=== PATIENT | male | born 1965 | race Caucasian/White ===

== ENCOUNTER 2023-02-21 06:10 | Outpatient (CLI) | payer OTHER ==
[2023-02-21 06:31] LABS: BASOPHILS % (AUTO) 0.9 % (0-1); EOSINOPHILS # (AUTO) 0.1 X10'3 (0-0.9); EOSINOPHILS % (AUTO) 2.3 % (0-6); HEMATOCRIT 47.2 % (42.0-52.0); HEMOGLOBIN 16.5 g/dl (14.0-17.9); LYMPHOCYTES # (AUTO) 1.5 X10'3 (1.1-4.8); LYMPHOCYTES % (AUTO) 36.9 % (21-51); MEAN CORPUSCULAR HEMOGLOBIN 34.4 PG (27.0-31.0); MEAN CORPUSCULAR VOLUME 98.3 FL (78-98); MEAN PLATELET VOLUME 7.5 FL (7.4-10.4); MONOCYTES # (AUTO) 0.4 X10'3 (0-0.9); MONOCYTES % (AUTO) 9.9 % (2-12); NEUTROPHILS # (AUTO) 2.1 X10'3 (1.8-7.7); PLATELET COUNT 212 X10'3 (140-440); RED CELL DISTRIBUTION WIDTH 13.2 % (11.5-14.5); WHITE BLOOD COUNT 4.2 X10'3 (4.5-11.0)
[2023-02-21 06:59] LABS: ALANINE AMINOTRANSFERASE 43 U/L (12-78); ALBUMIN 4.1 G/DL (3.4-5.0); ALBUMIN/GLOBULIN RATIO 1.2 (1.1-1.5); ALKALINE PHOSPHATASE 58 IU/L (46-116); ANION GAP 6 (8-16); ASPARTATE AMINO TRANSFERASE 22 U/L (10-37); BILIRUBIN,TOTAL 0.5 MG/DL (0.1-1.0); BLOOD UREA NITROGEN 21 MG/DL (7-18); BUN/CREATININE RATIO 16.3 (10.0-20.0); CHLORIDE 103 MMOL/L (99-107); CHOL/HDL RATIO 2.6 (0.00-4.99); CHOLESTEROL 223 MG/DL (0-200); CREATININE 1.29 MG/DL (0.60-1.10); GLUCOSE 98 MG/DL (70-104); HDL CHOLESTEROL 86 MG/DL (35-60); LDL CHOLESTEROL 115 MG/DL (50-100); POTASSIUM 4.4 MMOL/L (3.5-5.1); SODIUM 138 MMOL/L (135-145); TOTAL CARBON DIOXIDE 29.2 MMOL/L (24-32); TOTAL PROTEIN 7.5 G/DL (6.4-8.2); TRIGLYCERIDES 56 MG/DL (20-135); eGFR 57 ML/MIN
== END 2023-02-21 23:59 | disposition home or self-care (01) ==
LOC: LAB 06:10
PROVIDERS: ATTEND Student in an Organized Health Care Education/Training Program
DX: Z00.00 Encounter for general adult medical examination without abnormal findings (principal)
CPT/HCPCS: 36415; 80053; 80061; 85025

== ENCOUNTER 2024-11-27 08:26 | Outpatient (CLI) | payer OTHER ==
--- NOTE | 2024-11-27 15:49 | RADIOLOGY REPORT ---
CLINICAL HISTORY: PAIN IN LEFT KNEE COMPARISON: None TECHNIQUE: Multisequence multiplanar MRI images of the left knee were obtained without contrast. FINDINGS: Cruciate ligaments: ACL and PCL are intact. Extensor mechanism: Quadriceps mechanism and patellar tendon are intact. There is mild edema of the s uperior aspect of Hoffa's fat pad, may be due to impingement. There is mild marrow edema of the infer ior pole of the patella, likely reactive changes. Collateral ligaments: Mild edema and trace fluid along the superficial fibers of the medial collatera l ligament consistent with a grade 1 sprain in the appropriate clinical setting. Lateral collateral l igament is intact. Menisci: Lateral meniscus is intact. Horizontal flap tear of the posterior horn / body junction of th e medial meniscus with small flap component of the tear extending slightly into the adjacent inferior gutter, partially interposed between the medial tibial plateau and MCL. Cartilage: Chondral thinning in the medial and lateral compartments with superimposed [id number] e chondral fissuring. Bones: No acute fracture or focal marrow contusion. Joint fluid: Small joint effusion. Other: There is edema and fluid coursing along the fascial plane between the semimembranosus and medi al head gastrocnemius muscles, possibly leakage of fluid from a popliteal cyst and coursing along adj acent fascial planes. IMPRESSION: 1. Horizontal flap tear of the medial meniscus with flap component of the tear extending slightly int o the adjacent inferior gutter. 2. Edema of the superior aspect of Hoffa's fat pad, may be seen with impingement. There is mild marro w edema in the adjacent portions of the inferior pole of the patella, possibly reactive marrow signal changes to adjacent inflammation. 3. Grade 1 sprain of the MCL. 4. 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 5. Edema and fluid coursing along the fascial planes between the semimembranosus and medial head jourdan rocnemius muscles and extending along adjacent fascial planes, possibly leakage of fluid from a popli teal cyst with no significant residual popliteal cyst demonstrated separate from the edema and fluid described above. Correlate with clinical findings. 6. Additional findings as described above.
== END 2024-11-27 23:59 | disposition home or self-care (01) ==
LOC: MRI 08:26
PROVIDERS: ATTEND Orthopaedic Surgery
DX: S83.412A Sprain of medial collateral ligament of left knee, initial encounter (principal); S83.241A Other tear of medial meniscus, current injury, right knee, initial encounter; M25.562 Pain in left knee; X58.XXXA Exposure to other specified factors, initial encounter; Y93.89 Activity, other specified; R60.0 Localized edema; Y92.89 Other specified places as the place of occurrence of the external cause; Y99.8 Other external cause status; M22.42 Chondromalacia patellae, left knee
CPT/HCPCS: 73721